=== PATIENT | male | born 1985 | race Two or more races ===

== ENCOUNTER 2020-01-20 21:16 | Emergency (ER) | payer MEDICARE ==
[~2020-01-20] VITALS: Ht 182.9 cm; Wt 261.0 kg
[~2020-01-20 21:16] MED LIST: AMOX-367 PO; CHOL400T2 PO
[2020-01-20 21:20] VITALS: BP 143/78
[2020-01-20] MEDS ORDERED: HYDROcodone/APAP 5/325 TABLET ONE (21:55)
[2020-01-20] MEDS ORDERED: HYDROcodone/APAP 5/325 TABLET PO ONE (22:00)
== END 2020-01-20 22:03 | disposition home or self-care (01) ==
LOC: ED 21:30
DX: M10.031 Idiopathic gout, right wrist (principal); M13.131 Monoarthritis, not elsewhere classified, right wrist; Z72.9 Problem related to lifestyle, unspecified
CPT/HCPCS: 99283

== ENCOUNTER 2020-08-29 11:10 | Emergency (ER) | payer MEDICARE ==
[~2020-08-29] VITALS: Ht 182.9 cm; Wt 267.5 kg
[2020-08-29 11:16] VITALS: BP 143/87
--- NOTE | 2020-08-29 12:02 | NUR ---
PT C/O LEFT SHOULDER PAIN SINCE YESTERDAY DENIES INJURY. PLACED ON VITALS MONITORS, CALL LIGHT WITHIN REACH.
[2020-08-29] MEDS ORDERED: KETOROLAC 30 MG/1 ML ONE (12:10)
[2020-08-29] MEDS ORDERED: HYDROcodone/APAP 5/325 TABLET ONE (12:10)
--- NOTE | 2020-08-29 12:16 | NUR ---
PT IN XRAY.
[2020-08-29] MEDS ORDERED: KETOROLAC 30 MG/1 ML IM ONE (12:30)
[2020-08-29] MEDS ORDERED: HYDROcodone/APAP 5/325 TABLET PO ONE (12:30)
== END 2020-08-29 13:26 | disposition home or self-care (01) ==
LOC: ED 11:33
DX: M75.32 Calcific tendinitis of left shoulder (principal); M10.9 Gout, unspecified
CPT/HCPCS: 73030; 96372; 99283; J1885